=== PATIENT | female | born 1975 | race Caucasian/White ===

== ENCOUNTER 2017-03-27 13:34 | Observation (INO) ==
[2017-03-27 14:05] LABS: Basophils % 0.2 %; Eosinophils # 0.2 K/mcL (0.0-0.6); Eosinophils % 2.9 %; Hematocrit 37.1 % (35.3-44.9); Hemoglobin 12.8 g/dL (11.5-15.4); Immature Granulocytes % 0.4 % (0-4); Immature Platelets 2.6 % (1.1-6.1); Lymphocytes # 1.7 K/mcL (0.6-4.6); Lymphocytes % 30.6 %; Mean Corpuscular HGB Conc 34.5 g/dL (31.6-35.5); Mean Corpuscular Volume 89.8 fL (83.0-100.0); Mean Platelet Volume 9.7 fL (9.4-12.4); Monocytes # 0.3 K/mcL (0.0-1.3); Monocytes % 5.1 %; Neutrophils # 3.3 K/mcL (1.6-8.9); Platelet Count 212 K/mcL (140-400); Red Blood Count 4.13 M/mcL (3.82-4.97); Red Cell Distribution Width 12.8 % (11.5-14.5); Segmented Neutrophils % 60.8 %
[2017-03-27 14:18] LABS: Alanine Aminotransferase 28 Units/L (0-55); Albumin 3.5 g/dL (3.5-5.0); Albumin/Globulin Ratio 0.9 (1.1-2.2); Alkaline Phosphatase 69 Units/L (38-126); Amylase 47 Units/L (25-125); Aspartate Amino Transferase 21 Units/L (5-34); BUN/Creatinine Ratio 11 (6-26); Bilirubin,Direct 0.3 mg/dL (0.0-0.5); Bilirubin,Indirect 0.4 mg/dL (0.0-1.2); Bilirubin,Total 0.7 mg/dL (0.2-1.2); Blood Urea Nitrogen 9 mg/dL (7-20); Carbon Dioxide 22 mEq/L (19-29); Chloride 108 mEq/L (98-109); Globulin 3.8 g/dL (2.4-3.5); Glucose 112 mg/dL (70-99); Lipase 19 Units/L (8-78); Osmolality,Calculated 283 (280-300); Potassium 3.6 mEq/L (3.5-4.5); Sodium 137 mEq/L (136-145); Total Protein 7.3 g/dL (6.0-8.3); eGFR For African Americans > 60 (> 60); eGFR For Non-African Americans > 60 (> 60)
[2017-03-27 14:53] LABS: Bilirubin,Urine Negative (Negative); Blood,Urine Negative (Negative); Clarity,Urine Clear (Clear); Color,Urine Yellow (Yellow); Glucose,Urine (UA) Normal (Normal); Ketones,Urine Negative (Negative); Leukocyte Esterase,Urine Negative (Negative); Nitrite,Urine Negative (Negative); Protein,Urine Negative (Neg-Trace); Urobilinogen,Urine Normal (Normal)
[2017-03-27] MEDS ORDERED: Ondansetron 4 MG/2 ML VIAL IVP ONE (15:15)
[2017-03-27] MEDS ORDERED: 0.9 % Sodium Chloride 1,000 ML IVC ONE (15:21)
[2017-03-27] MEDS ORDERED: *HR* HYDROmorphone (PF) 1 MG/ML SYRINGE IVP ONE ×3 (15:21→19:36)
[2017-03-27] MEDS ORDERED: Ketorolac 15 MG/ML VIAL IVP ONE (16:19)
--- NOTE | 2017-03-27 16:44 | Emergency Department Note ---
START Narrative - START START: I, Robinson Moralez, examined this patient and my medical decision-making was reviewed with the FORMS DESIGNER/PA/Advanced Practice Nurse/Resident Physician. I agree with the documented findings, disposition and treatment plan as described except to the extent set forth below. 42-year-old female presents to emergency department with right lower quadrant abdominal pain. Patient states her pain started within the past few days and has worsened. Patient states the pain is sharp and stabbing in the right lower quadrant is worse with movement and straightening out her right leg. His fever , chills, diarrhea, hematochezia, melena. Patient reports mild nausea with the pain. Denies recent trauma. Patient's laboratory evaluation is largely within normal limits. CT of the abdomen and pelvis did not show acute appendicitis however did show a complex cyst on the right ovary. Patient is status post hysterectomy and left oophorectomy. We will obtain a ultrasound of the right ovary for evaluation of possible torsion versus hemorrhagic cyst. Ultrasound showed acute versus chronic torsion of the right ovary. Patient is still in significant amount of pain. The resident spoke with the PRESIDENT AND CHIEF EXECUTIVE OFFICER physician, Dr. Marsh, who recommended admission to the hospital accepted her to his service. Patient is comfortable with this plan.
--- NOTE | 2017-03-27 16:51 | Emergency Department Note ---
Disposition Clinical Impression: Ovarian torsion Disposition: Admitted As Inpatient Condition: Good Time of Disposition: 19:36 Abdominal Pain HPI - General Chief Complaint: ED Abdominal Pain Stated Complaint: RLQ PAIN Time Seen by Provider: 03/27/17 15:01 Source: patient Mode of arrival: ambulatory Limitations: no limitations Nursing Notes Reviewed: Yes Vital Signs Reviewed: Yes - History of Present Illness HPI Narrative: Patient presents to the ED with the chief complaint of right lower quadrant abdominal pain. Patient reports that the pain started yesterday. Has been sharp, stabbing, intermittent in nature but never going away. It radiates through to her back and his only better when she pulls her right leg up. Some nausea but no vomiting. States that she cannot take the pain anymore and she cannot lay down without having significant pain. Denies any fever, chills, chest pain, shortness of breath, rash. Does have a previous history of hysterectomy and only has her right ovary left. She has also had abdominal wall reconstruction after an issue with her many years ago. Pain Scale: 10 - Related Data Previous Rx's Medication Instructions Recorded Levofloxacin [Levaquin] 750 mg PO DAILY #7 tablet 06/18/16 predniSONE [PredniSONE] 60 mg PO DAILY #15 tablet 06/18/16 Promethazine [Phenergan] 25 mg PO Q6HR PRN #12 tablet 10/12/16 Allergies Allergy/AdvReac Type Severity Reaction Status Date / Time acetaminophen AdvReac Hives Verified 03/27/17 13:37 [From Darvocet-N] diphenhydramine AdvReac Anaphylaxis Verified 03/27/17 13:37 [From Benadryl] Erythromycin Base AdvReac Anaphylaxis Verified 03/27/17 13:37 Oxycodone [From Percocet] AdvReac Hives Verified 03/27/17 13:37 propoxyphene AdvReac Hives Verified 03/27/17 13:37 [From Darvocet-N] tramadol [From Ultram] AdvReac See Verified 03/27/17 13:37 Comments All systems ED: reviewed and negative except as stated. Constitutional: Denies: fever Cardiovascular: Denies: chest pain Gastrointestinal: Reports: abdominal pain, nausea Genitourinary: Denies: dysuria, hematuria Musculoskeletal: Reports: back pain Abdominal Pain PMH - Past Medical History Medical history: Reports: asthma, COPD, fibromyalgia Female Surgical History: Reports: breast surgery, , hysterectomy, other Psychiatric history: Reports: anxiety - Social History Smoking status: Current every day smoker Alcohol use: Reports: none Drug use: Reports: none Physical Exam - General Limitations: no limitations General appearance: alert, in no apparent distress - Head Head exam: atraumatic, normocephalic, normal inspection - Eye Eye exam: Present: normal appearance, PERRL, EOMI - Chest Chest inspection: Present: normal inspection, symmetric chest wall rise - Respiratory Respiratory exam: Present: normal lung sounds bilaterally - Cardiovascular Cardiovascular exam: Present: regular rate, normal rhythm, normal heart sounds - Abdominal Exam Abdominal exam: Present: soft, tenderness, scar (Extensive scarring). Absent: distention, guarding, rebound Abdominal tenderness: Present: RLQ, mild, moderate (Right pelvic) - Extremities Exam Extremities exam: Present: normal inspection, full ROM. Absent: tenderness, pedal edema - Neurological Exam Neurological exam: Present: alert, oriented X3 - Psychiatric Psychiatric exam: Present: normal affect, normal mood - Skin Skin exam: Present: warm, dry, intact, normal color Course Course Narrative: Patient presenting with right pelvic pain. Has had previous hysterectomy and left ovary removed. Right ovary still present and she does have pelvic tenderness. Also tender in right lower quadrant. We will CT her abdomen and pelvis to rule out appendicitis. If negative, we will proceed to transvaginal ultrasound to evaluate ovaries. Pain has been constant. She does not appear acutely ill. Etiologies such as TOA or complete torsion felt unlikely at this time - Reevaluation(s) Reevaluation #1: [facility] called about the ultrasound report that shows concern over a early or chronic torsion. There is very little arterial blood flow to the right ovary and no venous flow. JACKSP[facility] was contacted at 1900 and has not called back. There are paged again at 1920. Reevaluation #2: Accepted for admission by the JACKSPOOLER, Dr. Marsh Time: 19:35 Vital Signs Temperature 97.7 F 03/27/17 13:35 Pulse Rate 58 03/27/17 13:35 Respiratory Rate 18 03/27/17 13:35 Blood Pressure 153/93 03/27/17 13:35 O2 Sat by Pulse Oximetry 97 03/27/17 13:35 Temperature 97.7 F 03/27/17 13:35 Pulse Rate 54 03/27/17 19:24 Respiratory Rate 18 03/27/17 19:40 Blood Pressure 143/58 03/27/17 19:40 O2 Sat by Pulse Oximetry 97 03/27/17 19:24 Oxygen Delivery Oxygen Delivery Room Air Abdominal Pain - Lab Data Result diagrams: 03/27/17 13:59 03/27/17 13:59 Lab Results 03/27/17 03/27/17 03/27/17 Range/Units 13:59 13:59 14:47 WBC 5.5 (4.3-11.1) K/mcL RBC 4.13 (3.82-4.97) M/mcL Hgb 12.8 (11.5-15.4) g/dL Hct 37.1 (35.3-44.9) % MCV 89.8 (83.0-100.0) fL MCH 31.0 (28.0-33.3) pg MCHC 34.5 (31.6-35.5) g/dL RDW 12.8 (11.5-14.5) % Plt Count 212 (140-400) K/mcL MPV 9.7 (9.4-12.4) fL Immature Gran % 0.4 (0-4) % Seg Neutrophils % 60.8 % Lymphocytes % 30.6 % Monocytes % 5.1 % Eosinophils % 2.9 % Basophils % 0.2 % Neutrophils # 3.3 (1.6-8.9) K/mcL Lymphocytes # 1.7 (0.6-4.6) K/mcL Monocytes # 0.3 (0.0-1.3) K/mcL Eosinophils # 0.2 (0.0-0.6) K/mcL Basophils # 0.0 (0.0-0.2) K/mcL Immature Plt Fraction 2.6 (1.1-6.1) % Sodium 137 (136-145) mEq/L Potassium 3.6 (3.5-4.5) mEq/L Chloride 108 (98-109) mEq/L Carbon Dioxide 22 (19-29) mEq/L BUN 9 (7-20) mg/dL Creatinine 0.79 (0.57-1.11) mg/dL Est GFR ( Amer) > 60 (> 60) Est GFR (Non-Af Amer) > 60 (> 60) BUN/Creatinine Ratio 11 (6-26) Glucose 112 H (70-99) mg/dL Calculated Osmolality 283 (280-300) Calcium 9.0 (8.6-10.8) mg/dL Total Bilirubin 0.7 (0.2-1.2) mg/dL Direct Bilirubin 0.3 (0.0-0.5) mg/dL Indirect Bilirubin 0.4 (0.0-1.2) mg/dL AST 21 (5-34) Units/L ALT 28 (0-55) Units/L Alkaline Phosphatase 69 (38-126) Units/L Serum Total Protein 7.3 (6.0-8.3) g/dL Albumin 3.5 (3.5-5.0) g/dL Globulin 3.8 H (2.4-3.5) g/dL Albumin/Globulin Ratio 0.9 L (1.1-2.2) Amylase 47 (25-125) Units/L Lipase 19 (8-78) Units/L Urine Color Yellow (Yellow) Urine Clarity Clear (Clear) Urine pH 7.0 (5.0-8.0) pH Units Ur Specific [place] 1.010 (1.010-1.025) Urine Protein Negative (Neg-Trace) mg/dL Urine Glucose (UA) Normal (Normal) mg/dL Urine Ketones Negative (Negative) mg/dL Urine Blood Negative (Negative) Urine Nitrite Negative (Negative) Urine Bilirubin Negative (Negative) Urine Urobilinogen Normal (Normal) mg/dL Ur Leukocyte Esterase Negative (Negative) Ur Culture Indicated? NO (NO)
[2017-03-27 21:34] VITALS: BP 136/75
[2017-03-27] MEDS ORDERED: *HR* HYDROcodone/Acet 10/325 mg TABLET PO STA (21:45)
--- NOTE | 2017-03-27 21:50 | OB/GYN History & Physical ---
Date of Encounter: 03/27/17 Time of Encounter: 21:46 Assessment and Plan (1) Right lower quadrant abdominal pain Current visit: Yes Status: Acute Pain and imaging suggestive of possible ovarian torsion on the remaining right ovary. Discussed findings with patient who would like to go to [facility] for surgery due to her prior history of multiple surgeries. We discussed a torsion is only an emergent surgery if we are trying to save the ovary for future fertility. She states she is certain she desires no more children and has had a prior hysterectomy. She knows she is a high risk surgical patient. I offered a hospital transfer, but the patient declines. She would like her partner to take her via private car so she can go home first. She is requesting something for pain prior to discharge and takes Vicodin 7.5 mg at home. Again offered a hospital transfer to expedite her treatment and explained if she leaves to go home as a discharge the IV will have to be removed and she will have to go to [facility] and be seen in their ER for possible admission. She voices understanding, but continues to insist to leave via private car. She will be given a dose of 10 mg Vicodin and discharged with her labs and imaging reports to take to [facility] with her. She is not in distress and will not be driving herself there. She is given pain precautions on discharge. She is advised to remain NPO until she arrives at [facility]. History of Present Illness Chief complaint: abdominal pain HPI: Ms. Zapata is a 42 year old female G 4 p 4 s/p hysterectomy 2 years ago by [employer] oncology at [facility] for benign disease presented the ER with 1 day history of RLQ pain. She states the pain has progressively gotten worse. Upon arrival to our unit she is ambulating in the farris and asking for food. She wants to leave and go home. I asked the patient the story of her hysterectomy and she states no beater machine operator here wanted to do her surgery due to all of her previous abdominal surgeries. She finally convinced Dr. Lopez at [facility] to do the hysterectomy, but he insisted on leaving her right ovary because she was under 41 and he did not want her to go thru menopause. She does not desire future fertility and wants surgery. She denies nausea, vomiting, dysuria, hematuria. She states following her last abdominal surgery she had MRSA and secondary wound closure that took a year to heal. Past Med Surg Social Fam HX - Past Medical History Source: patient Medical history: asthma, COPD, fibromyalgia Psychiatric history: anxiety - Past Surgical History Surgical History: , hysterectomy, other (breast reduction, tonsillectomy, reatacment of digit, LSO, abdominoplasty, bach surger, tubal ligation, wisdom teeth extraction, carpal tunnel release, EGD, colonoscopy) - Social History Smoking Status: Current every day smoker Smokeless Tobacco Status: No Alcohol use: none Drug use: none Obstetrical History - Pregnancies : 4 Para: 4 Medications and Allergies Albuterol Sulfate [Albuterol Inhaler] 1 puff IH 03/27/17 [History] HYDROcodone/Acet 7.5/325 mg [Thornton 7.5-325 mg] 1 tab PO 03/27/17 [History] Tizanidine HCl [Zanaflex] 2 mg PO TID 03/27/17 [History] Zolpidem Tartrate [Edluar] 10 mg SL 03/27/17 [History] 3 Allergy/AdvReac Type Severity Reaction Status Date / Time diphenhydramine AdvReac Anaphylaxis Verified 03/27/17 13:37 [From Benadryl] Erythromycin Base AdvReac Anaphylaxis Verified 03/27/17 13:37 Oxycodone [From Percocet] AdvReac Hives Verified 03/27/17 13:37 propoxyphene AdvReac Hives Verified 03/27/17 13:37 [From Darvocet-N] tramadol [From Ultram] AdvReac See Verified 03/27/17 13:37 Comments Review of System OB All systems PM: reviewed and no additional remarkable complaints except as stated Exam - Vital Signs Vital signs: Initial Vital Signs Temp Pulse Resp BP Pulse Ox 97.7 F 58 18 153/93 97 03/27/17 13:35 03/27/17 13:35 03/27/17 13:35 03/27/17 13:35 03/27/17 13:35 - Constitutional Constitutional: well developed, well nourished, no acute distress, obese - Lungs Respiratory exam: CTAB - Cardiovascular Cardiovascular exam: RRR - Abdomen Abdomen: Present: bowel sounds normal (abdomen is firm from prior scarring with abdominoplasty and infection, palpable midline hernia), diffuse tenderness - Extremities Extremities exam: warm Results Result Diagrams: 03/27/17 13:59 03/27/17 13:59 Abnormal lab results Glucose 112 mg/dL (70-99) H 03/27/17 13:59 Globulin 3.8 g/dL (2.4-3.5) H 03/27/17 13:59 Albumin/Globulin Ratio 0.9 (1.1-2.2) L 03/27/17 13:59 All other labs normal. CT scan - abdomen: report reviewed CT scan - pelvis: report reviewed US - abdomen: report reviewed (Enlarged right ovary with diminished arterial flow), image reviewed
== END 2017-03-27 22:05 | disposition home or self-care (01) ==
LOC: EMEROO 13:34 → 1NENUOBS 13:34
PROVIDERS: ADMIT Obstetrics & Gynecology; ATTEND Obstetrics & Gynecology

== ENCOUNTER 2022-02-24 02:24 | Inpatient (IN) ==
[2022-02-24 02:55] LABS: Basophils % 0.3 %; Eosinophils # 0.1 K/mcL (0.0-0.6); Eosinophils % 1.7 %; Hematocrit 36.9 % (35.3-44.9); Hemoglobin 12.5 g/dL (11.5-15.4); Immature Granulocytes % 0.5 % (0-4); Lymphocytes # 1.4 K/mcL (0.6-4.6); Lymphocytes % 17.4 %; Mean Corpuscular HGB Conc 33.9 g/dL (31.6-35.5); Mean Corpuscular Hemoglobin 32.3 pg (28.0-33.3); Mean Corpuscular Volume 95.3 fL (83.0-100.0); Mean Platelet Volume 9.8 fL (9.4-12.4); Monocytes # 0.7 K/mcL (0.0-1.3); Monocytes % 9.3 %; Neutrophils # 5.5 K/mcL (1.6-8.9); Platelet Count 203 K/mcL (140-400); Red Blood Count 3.87 M/mcL (3.82-4.97); Red Cell Distribution Width 13.4 % (11.5-14.5); Segmented Neutrophils % 70.8 %; White Blood Count 7.8 K/mcL (4.3-11.1)
[2022-02-24 03:43] LABS: Alanine Aminotransferase 21 Units/L (7-52); Albumin 4.1 g/dL (3.5-5.7); Albumin/Globulin Ratio 1.2 (1.1-2.2); Alkaline Phosphatase 56 Units/L (34-104); Aspartate Amino Transferase 21 Units/L (13-39); BUN/Creatinine Ratio 19 (6-26); Bilirubin,Direct 0.1 mg/dL (0.0-0.2); Bilirubin,Indirect 0.4 mg/dL (0.0-1.0); Bilirubin,Total 0.5 mg/dL (0.3-1.0); Blood Urea Nitrogen 15 mg/dL (6-20); Calcium 8.9 mg/dL (8.6-10.3); Carbon Dioxide 27 mEq/L (23-29); Chloride 106 mEq/L (98-107); Globulin 3.3 g/dL (2.4-3.5); Glucose 103 mg/dL (70-105); Lipase > 1800 Units/L (11-82); Osmolality,Calculated 289 (280-300); Potassium 3.5 mEq/L (3.5-5.1); Sodium 139 mEq/L (136-145); Total Protein 7.4 g/dL (6.4-8.9); Troponin I < 0.03 ng/mL (< 0.04)
[2022-02-24] MEDS ORDERED: 0.9 % Sodium Chloride 1,000 ML IVC ONE (03:47)
[2022-02-24] MEDS ORDERED: Iopamidol - 370 500 ML MLS IVP ONE (03:47)
[2022-02-24] MEDS ORDERED: *HR* HYDROmorphone (PF) 1 MG/ML SYRINGE IVP ONE ×2 (03:47→05:52)
[2022-02-24] MEDS ORDERED: Ondansetron 4 MG/2 ML VIAL IVP ONE (03:47)
[2022-02-24 05:12] LABS: Influenza A PCR Negative (Negative); Influenza B PCR Negative (Negative); Resp. Syncytial Virus PCR Negative (Negative)
[2022-02-24 05:13] LABS: SARS-CoV-2 by PCR (In House) Negative (Negative)
[2022-02-24] MEDS ORDERED: Ondansetron 4 MG/2 ML VIAL IVP PRN (05:58)
[2022-02-24] MEDS ORDERED: Naloxone 0.4 MG/ML INJ IVP PRN (05:58)
[2022-02-24 06:15] LABS: Triglycerides 497 mg/dL (< 150)
[2022-02-24 06:52] LABS: Bilirubin,Urine Negative (Negative); Blood,Urine Negative (Negative); Clarity,Urine Clear (Clear); Color,Urine Colorless (Yellow); Glucose,Urine (UA) Normal (Normal); Ketones,Urine Negative (Negative); Leukocyte Esterase,Urine Negative (Negative); Nitrite,Urine Negative (Negative); Protein,Urine Negative (Neg-Trace); Specific Gravity,Urine > 1.030 (1.010-1.025); Urobilinogen,Urine Normal (Normal)
[2022-02-24] MEDS: Ringers Solution, Lactated 1,000 ML IVC SCH ×4 (06:52→22:29)
[2022-02-24] MEDS ORDERED: gemfibroziL 600 MG TABLET PO SCH (07:30)
[2022-02-24] MEDS ORDERED: *HR* HYDROmorphone 2 MG/ML SYRINGE IVP PRN (08:42)
[2022-02-24 10:30] LABS: Estimated Average Glucose 111 mg/dl; Hemoglobin A1C 5.5 %
[2022-02-24 13:06] LABS: Ethanol < 10 mg/dL (Less than 10)
[2022-02-24] MEDS: *HR* HYDROmorphone 2 MG/ML SYRINGE IVP PRN ×4 (13:43→22:28)
[2022-02-24] MEDS: Ondansetron 4 MG/2 ML VIAL IVP PRN ×2 (16:53→22:31)
[2022-02-24] MEDS ORDERED: *HR* Heparin 5,000 UNIT/ML VIAL SQ SCH (18:00)
[2022-02-24] MEDS ORDERED: methylPREDNISolone 125 MG/2 ML VIAL IVP ONE (19:30)
[2022-02-25] MEDS: *HR* HYDROmorphone 2 MG/ML SYRINGE IVP PRN ×2 (00:35→04:30)
[2022-02-25 05:57] LABS: Basophils % 0.1 %; Hematocrit 34.4 % (35.3-44.9); Hemoglobin 11.3 g/dL (11.5-15.4); Immature Granulocytes % 0.3 % (0-4); Lymphocytes # 1.1 K/mcL (0.6-4.6); Lymphocytes % 9.5 %; Mean Corpuscular HGB Conc 32.8 g/dL (31.6-35.5); Mean Corpuscular Hemoglobin 31.4 pg (28.0-33.3); Mean Corpuscular Volume 95.6 fL (83.0-100.0); Mean Platelet Volume 10.1 fL (9.4-12.4); Monocytes # 0.2 K/mcL (0.0-1.3); Monocytes % 1.8 %; Neutrophils # 9.9 K/mcL (1.6-8.9); Platelet Count 203 K/mcL (140-400); Red Cell Distribution Width 13.6 % (11.5-14.5); Segmented Neutrophils % 88.3 %; White Blood Count 11.2 K/mcL (4.3-11.1)
[2022-02-25 06:24] LABS: BUN/Creatinine Ratio 20 (6-26); Blood Urea Nitrogen 14 mg/dL (6-20); Calcium 8.8 mg/dL (8.6-10.3); Carbon Dioxide 27 mEq/L (23-29); Chloride 106 mEq/L (98-107); Glucose 131 mg/dL (70-105); Lipase 425 Units/L (11-82); Magnesium 2.1 mg/dL (1.6-2.6); Osmolality,Calculated 288 (280-300); Phosphorous 3.7 mg/dL (2.7-4.5); Potassium 4.2 mEq/L (3.5-5.1); Sodium 138 mEq/L (136-145)
[2022-02-25] MEDS: Ringers Solution, Lactated 1,000 ML IVC SCH (11:04)
[2022-02-26] MEDS ORDERED: Ketorolac 30 MG/ML VIAL IVP ONE (00:56)
[2022-02-26] MEDS: *HR* HYDROmorphone 2 MG/ML SYRINGE IVP PRN ×2 (02:33→06:34)
[2022-02-26 02:59] LABS: Basophils % 0.1 %; Eosinophils % 0.2 %; Hematocrit 30.4 % (35.3-44.9); Immature Granulocytes % 0.3 % (0-4); Lymphocytes # 2.1 K/mcL (0.6-4.6); Lymphocytes % 21.9 %; Mean Corpuscular HGB Conc 32.9 g/dL (31.6-35.5); Mean Corpuscular Hemoglobin 31.5 pg (28.0-33.3); Mean Corpuscular Volume 95.9 fL (83.0-100.0); Mean Platelet Volume 10.2 fL (9.4-12.4); Monocytes # 0.9 K/mcL (0.0-1.3); Monocytes % 9.1 %; Neutrophils # 6.7 K/mcL (1.6-8.9); Platelet Count 177 K/mcL (140-400); Red Blood Count 3.17 M/mcL (3.82-4.97); Red Cell Distribution Width 13.7 % (11.5-14.5); Segmented Neutrophils % 68.4 %; White Blood Count 9.7 K/mcL (4.3-11.1)
[2022-02-26 03:18] LABS: BUN/Creatinine Ratio 23 (6-26); Blood Urea Nitrogen 16 mg/dL (6-20); Calcium 8.7 mg/dL (8.6-10.3); Carbon Dioxide 26 mEq/L (23-29); Chloride 107 mEq/L (98-107); Glucose 79 mg/dL (70-105); Lipase 72 Units/L (11-82); Magnesium 2.2 mg/dL (1.6-2.6); Osmolality,Calculated 288 (280-300); Potassium 3.7 mEq/L (3.5-5.1); Sodium 139 mEq/L (136-145)
[2022-02-26] MEDS ORDERED: *HR* HYDROmorphone 2 MG/ML SYRINGE IVP PRN (13:18)
[2022-02-26] MEDS ORDERED: methylPREDNISolone 125 MG/2 ML VIAL IVP ONE (13:19)
[2022-02-26] MEDS ORDERED: Acetaminophen 325 MG TABLET PO PRN (13:19)
[2022-02-26] MEDS: Ondansetron 4 MG/2 ML VIAL IVP PRN (13:52)
[2022-02-26 16:05] VITALS: BP 130/74; PULSE 75; TEMP 98.6; O2SAT 93
[2022-02-27] MEDS ORDERED: predniSONE 20 MG TABLET PO SCH (09:00)
== END 2022-02-26 18:12 | disposition home or self-care (01) | DRG 439 ==
LOC: 2ANU 02:24 → EMEROOARM 02:24 → SUATTDRO 06:10 → 2ANU 06:45
PROVIDERS: ADMIT Internal Medicine; ATTEND Pharmacist